=== PATIENT | male | born 1950 | race Caucasian/White ===

== ENCOUNTER 2023-06-25 11:47 | Outpatient (CLI) | payer MEDICARE, SELFPAY ==
--- NOTE | 2023-06-25 11:49 | ECG_ITS ---
APPROVED REPORT Exam: Resting ECG HR:70 bpm ECG Measurements Heart Rate 70 AXES NV 162 P 49 QRSd 127 QRS -37 QT 361 T 35 QTc 382 Conclusion SINUS RHYTHM LEFT AXIS DEVIATION [QRS AXIS < -30] POSSIBLE RIGHT VENTRICULAR CONDUCTION DELAY [RSR (QR) IN V1/V2] SEPTAL MYOCARDIAL INFARCTION , OF INDETERMINATE AGE [40+ ms Q WAVE IN V1/V2] ABNORMAL ECG UNCONFIRMED REPORT Electronically signed by : Pablito Hutchison MD 06/26/2023 13:40:49
--- NOTE | 2023-06-25 12:19 | XR_ITS ---
FINAL REPORT TECHNIQUE: Chest PA & Lateral CLINICAL HISTORY: pre-op, foot sx COMPARISON: None FINDINGS: 2 views of the chest were performed. The heart size is normal. There are multiple median sternotomy wires. There is no acute cardiopulmonary process. There are no pleural effusions. There is no pneumothorax. The bony thorax appears intact. IMPRESSION: No acute cardiopulmonary process. Reviewed, Interpreted and Dictated by Kalyan Borjas MD Transcribed by Alana Santana Authenticated and . [facility]
--- NOTE | 2023-06-25 12:19 | XR_ITS ---
FINAL REPORT CLINICAL HISTORY: pre-op, right foot sx COMPARISON: None FINDINGS: RIGHT FOOT 3 views of the right foot were obtained. There is no acute fracture or dislocation. Hammertoe deformities are noted of the 2nd, 3rd, and 4th digits. There are moderate vascular calcifications. IMPRESSION: Hammertoe deformities as above. Reviewed, Interpreted and Dictated by Kalyan Borjas MD Transcribed by Alana Santana Authenticated and . [facility]
[2023-06-25 12:29] LABS: Basophils % 0.5 % (0.1-2.0); Eosinophils % 0.5 % (0.1-12.0); Hematocrit 48.3 % (42.0-52.0); Hemoglobin 16.2 g/dL (14.1-18.0); Lymphocytes # 0.8 K/mm3 (0.7-4.5); Lymphocytes % 17.1 % (10-50); Mean Corpuscular HGB Conc 33.5 g/dL (31.8-35.4); Mean Corpuscular Hemoglobin 30.5 pg (27.0-31.2); Mean Corpuscular Volume 91.2 fl (80-94); Mean Platelet Volume 8.2 fl (7.4-10.4); Monocytes # 0.9 K/mm3 (0.1-1.0); Monocytes % 17.1 % (1.7-9.3); Neutrophils # 3.2 K/mm3 (1.8-7.8); Neutrophils % 64.8 % (37.0-80.0); Platelet Count 147 K/mm3 (142-424); Red Cell Distribution Width 13.8 % (11.5-17.5)
[2023-06-25 13:16] LABS: Alanine Aminotransferase 38 U/L (12-78); Albumin Level 4.2 g/dl (3.5-5.0); Albumin/Globulin Ratio 1.4 (1.1-1.8); Alkaline Phosphatase 80 U/L (38-126); Anion Gap 11.1 mEq/L (5-15); Aspartate Amino Transferase 45 U/L (17-59); Bilirubin,Total 0.7 mg/dl (0.2-1.3); Blood Urea Nitrogen 16 mg/dl (9-20); Calcium 8.5 mg/dl (8.4-10.2); Carbon Dioxide 26 mmol/L (22.0-30.0); Chloride 104 mmol/L (98-107); Estimated Glomerular Filt Rate 74 ml/min (>60); GFR (African American) 89 ML/MIN (>60); Glucose 105 mg/dl (74-100); Potassium 4.1 mmoL/L (3.5-5.1); Sodium 137 mmol/L (136-145); Total Protein,Serum 7.2 g/dl (6.3-8.2)
== END 2023-06-25 23:59 ==
PROVIDERS: Visit Provider Podiatrist
DX: Z01.818 Encounter for other preprocedural examination; M20.41 Other hammer toe(s) (acquired), right foot
CPT/HCPCS: 36415; 71046; 73630; 80053; 85025; 93005

== ENCOUNTER 2023-07-09 08:03 | Day surgery (SDC) | payer MEDICARE, SELFPAY ==
[2023-07-08 11:32] VITALS: BMI 28.5
[2023-07-09 08:22] VITALS: BP 143/79; PULSE 85; RESP 17; TEMP 36.5; O2SAT 98
[2023-07-09] MEDS: LACTATED RINGERS 1000ML 1,000 ML 25 ML IV (08:30)
[2023-07-09 08:46] LABS: INR 2.47 (0.9-1.1); Prothrombin Time 25.1 seconds (10.1-12.5)
--- NOTE | 2023-07-09 09:16 | SUR.PREOP ---
Dr. Sandoval cancelling case today D/T INR 2.47. MD has talked with patient and to explain.
--- NOTE | 2023-07-09 09:29 | SUR.PREOP ---
Per Dr. Sandoval request, call to Perlita in office to reschedule pt for 07-16-23 and pt to stop blood thinner 3 days before. Pt verbalized understanding to stop blood thinner on 07-13-23. IV discontinued, pt dressed and ambulated out of pre-op. Pt and upset that cancelled procedure today but behavior is kind.
--- NOTE | 2023-07-16 07:23 | EXP.ANES.CKL ---
[facility] Disclaimer: The information contained in this section may have been updated after the patient was seen, as this information can be updated by other users. Medical History HLD (hyperlipidemia) HTN (hypertension), benign Surgical History H/O aortic valve replacement H/O hand surgery H/O hernia repair H/O shoulder surgery Hx of tonsillectomy Family History Other Cancer Coronary artery disease Hypertension Social History (Updated 07/16/23 @ 06:44 by Carmen Brunner RN) Smoking Status: Never smoker alcohol intake: never substance use type: denies use current occupational status: retired Travel in the last 8 weeks: None [facility] Anesthesia Checklist Patient Identification Patient Identification: Arm Band, Family () and Verbal (Name & ) Structural Data Admitted From: Home Planned Operative Procedure/s: Rt. cook correction Consent for Planned Operative Procedure(s) Verified: Yes Verified Documents: Surgical Consent and History and Physical NPO Status Verified Time NPO: 01:00 Chart Verification Results Verified: CBC, BMP, PT, PTT, INR, ECG and Chest Xray Additional verifications Patient : No Anesthesia Reactions: No Hx Blood Transfusions: No Blood Transfusion Reaction: No Cardiovascular Assessment Heart Sounds: S1 & S2 Pulse Rhythm: Irregular Peripheral Edema: No Airway Assessment Mallampati Score:: Class II C-Spine Mobility Assessed: Yes (FROM) TMJ Mobility Assessed: Yes Dentition: Good Dentition (Nothing loose per pt.) Neurological Assessment Level of Consciousness: Awake, Alert, Appropriate and Follows Commands Hx Seizures: No Numbness or tingling in extremities: No Anesthesia Plan Anesthesia Risk discussed: Yes Anesthesia Plan: Verified ASA Class: III Anesthesia Type: MAC w/Block
--- NOTE | 2023-07-16 10:50 | P.PNANES_ITS ---
[facility] Anesthesia Record Part I Anesthesia Record I Intake, IV Amount: 1,400 Hydration: Adequate Estimated blood loss (mL): 20 Urine output (mL): 0 Blood Products used (#): none Blood Pressure: 111/75 SaO2: 96 Pulse Rate: 81 Airway Patency: Patent Respiratory Rate: 16 Temperature: 97.8 F Patient is:: Awake (Talking) and Stable Stable to PACU at:: 11:45
[2023-07-16 10:51] VITALS: BP 111/75; PULSE 81; RESP 16; TEMP 36.6; O2SAT 96
--- NOTE | 2023-07-16 11:51 | P.OP_ITS ---
Date of procedure: 07/16/23 Pre-op Diagnosis:: Right foot painful metatarsal region and hammertoes right foot Post-op Diagnosis:: Same Procedure performed:: Second metatarsal osteotomy right foot; hammertoe correction toes 2,3,4,5 right foot Surgeon:: Jose Sandoval DPM BUSINESS SYSTEMS ARCHITECT:: Other Anesthesia: LMA and other (popliteal) Estimated blood loss (mL): 1 Operative findings:: expected; changed intraoperatively from osteotomy of metatarsals 2-4 to second metatarsal osteotomy only; and added fifth hammertoe correction due to contracture of tendons across all four lesser toes. Operative note:: On this date and time patient was deemed an appropriate surgical candidate. Reviewed procedure planned and signed foot; opportunity to answer all questions. With informed consent signed, the patient was then administered a popliteal nerve block (anesthesia department) and then taken to the operating room. The patient was positioned supine on Operating room table. MAC anesthesia was induced. Tourniquet was applied to the right ankle, proximal to malleoli. Right 2nd Digit PIPJ AD: The [right] lower extremity was prepped and drapped in normal sterile fashion. Tourniquet inflated at 250mmHg. Attention was directed to the right second toe, where a dorsal linear incision was mapped out over the PIPJ extending distally over the DIPJ. Dissection was carried thru skin and sub q tissue, with care to maintain surgical hemostasis. Transverse tenotomy performed at the PIPJ, with release of the medial and lateral collateral ligaments. The head of the proximal and base of the middle phalanx was removed, exposing good cancellous bone. Right 2nd Metatarsal osteotomy: Extended incision over metatarsal; care taken to maintain surgical hemostasis and protect vital structures as dissected to expose the 2nd Metatarsophalangeal joint. Capsulotomy performed; then McGlamry elevator used to free plantar plate and expose metatarsal head. Osteotomy performed with sagittal bone saw; and head of metatarsal advanced to more appropriate anatomical site. Secured with K- wires; then cannulated screw 2-0x13mm; visualized on C-arm intraoperatively. K-wire then driven through phalanges and head of second metatarsal for correcti on. Right 3rd Digit PIPJ AD: The [right] lower extremity was prepped and drapped in normal sterile fashion. Tourniquet inflated at 250mmHg. Attention was directed to the right third toe, where a dorsal linear incision was mapped out over the PIPJ extending distally over the DIPJ. Dissection was carried thru skin and sub q tissue, with care to maintain surgical hemostasis. Transverse tenotomy performed at the PIPJ, with release of the medial and lateral collateral ligaments. The head of the proximal and base of the middle phalanx was removed, exposing good cancellous bone. K-wire then driven through phalanges and head of second metatarsal for correction. Right 4th Digit PIPJ AD: The [right] lower extremity was prepped and drapped in normal sterile fashion. Tourniquet inflated at 250mmHg. Attention was directed to the right fourth toe, where a dorsal linear incision was mapped out over the PIPJ extending distally over the DIPJ. Dissection was carried thru skin and sub q tissue, with care to maintain surgical hemostasis. Transverse tenotomy performed at the PIPJ, with release of the medial and lateral collateral ligaments. The head of the proximal and base of the middle phalanx was removed, exposing good cancellous bone. K-wire then driven through phalanges and head of second metatarsal for correction. Right 5th Digit PIPJ AD: The [right] lower extremity was prepped and drapped in normal sterile fashion. Tourniquet inflated at 250mmHg. Attention was directed to the right fifth toe, where a dorsal linear incision was mapped out over the PIPJ extending distally over the DIPJ. Dissection was carried thru skin and sub q tissue, with care to maintain surgical hemostasis. Transverse tenotomy performed at the PIPJ, with release of the medial and lateral collateral ligaments. The head of the proximal and base of the middle phalanx was removed, exposing good cancellous bone. The tourniquet was deflated after 93 minutes and immediate hyperemic response was noted to the digits. The wounds were cleansed. Xeroform, dry sterile dressing was then applied to the [right] foot. Well padded posterior splint was applied; and patient will receive surgery flat bottomed shoe. The patient was awoken from anesthesia and transferred to recovery with vital signs stable and neurovascular status intact. Materials: 0.45 mm smooth K-wire; 0.62 K-wire; cannulated 2-0x13mm cannulated screw [place]. Discharge/Plan: D/C home today when ready and vital signs stable. Patient is to maintain dressing clean dry and intact. Ice to the ankle/behind knee and elevate on two pillows. Minimal weight bearing to the [right] lower extremity with DME assistance (crutches, walker, rolling knee scooter). Rx for Hydrocodone 7.5/325; Phenergan 12.5mg given. Lovenox 40 bid subcutaneous injections; as patient resumes Warfarin. Also, patient to be advised by cardiology. Follow up in one week. Tourniquet time (min): 93 Condition: stable Disposition: same day Complications:: negative
== END 2023-07-09 09:30 | disposition home or self-care (01) ==
PROVIDERS: Visit Provider Podiatrist
DX: Z53.09 Procedure and treatment not carried out because of other contraindication (principal); M79.671 Pain in right foot; Z79.01 Long term (current) use of anticoagulants
CPT/HCPCS: 85610

== ENCOUNTER 2023-07-16 06:24 | Day surgery (SDC) | payer MEDICARE, SELFPAY ==
[2023-07-16 06:42] VITALS: BP 123/81; PULSE 77; RESP 18; TEMP 36.6; O2SAT 98; BMI 28.5
[2023-07-16 08:11] LABS: Activated Partial Thrombo Time 27.9 seconds (22.8-30.6); INR 1.04 (0.9-1.1); Prothrombin Time 11.2 seconds (10.1-12.5)
--- NOTE | 2023-07-16 09:35 | XR_ITS ---
FINAL REPORT CLINICAL HISTORY: RT FOOT IN OR FINDINGS: FLUOROSCOPY Fluoroscopy was obtained for postoperative of the right foot. One spot image was obtained. 2 seconds of fluoroscopy time. 0.9 mGy was utilized. IMPRESSION: Fluoroscopy as above. Reviewed, Interpreted and Dictated by Conor Carey III, MD Transcribed by Leonie Wang Authenticated and [facility]
[2023-07-16 10:40] VITALS: BP 111/75; PULSE 81; RESP 20; TEMP 36.6; O2SAT 96
[2023-07-16 10:55] VITALS: BP 127/68; PULSE 74; RESP 18; O2SAT 97
[2023-07-16 11:10] VITALS: BP 130/75; PULSE 75; RESP 18; O2SAT 96
[2023-07-16 11:20] VITALS: BP 132/75; PULSE 74; RESP 16; O2SAT 100
== END 2023-07-16 11:40 | disposition home or self-care (01) ==
PROVIDERS: Visit Provider Podiatrist
PROC: (CPT 28285; principal; 2023-07-16 07:30)
DX: M79.671 Pain in right foot (principal); Z79.01 Long term (current) use of anticoagulants; Z79.899 Other long term (current) drug therapy; M20.41 Other hammer toe(s) (acquired), right foot
CPT/HCPCS: 28285 ×4; 28308; 73620; 76000; 85610; 85730; 96374; C1713; J2405